=== PATIENT | female | born 1960 | race Caucasian/White ===

== ENCOUNTER → 2018-09-12 11:01 | Outpatient (CLI) | payer BC, SELFPAY ==
--- NOTE | 2018-09-12 11:12 | XR_ITS ---
EXAM: XR lumbar spine min 4V HISTORY: ITS.REASON: LT SIDED LOW BACK PAIN ORDERING PHYSICIAN: Ryan Sepulveda MD PATIENT AGE: 57 years COMPARISON: None FINDINGS: There is degenerative disc disease at L4-L5 with 8 mm anterolisthesis of L4. Mild degenerative disc disease is also present at L5-S1. Mild arthritic changes are present at the SI joints on both sides. No acute fracture. Incidental note is made of some faint calcifications in the epigastric region. This could be within the pancreas. Abdomen CT may confirm. IMPRESSION: 1. 8 mm anterolisthesis of L4 on L5 with degenerative disc disease at that level. 2. Mild degenerative disc disease L5-S1 with degenerative changes in the SI joints. 3. Possible pancreatic calcifications which may be better evaluated with CT
--- NOTE | 2018-09-12 11:13 | XR_ITS ---
XR hip LT 2-3V w/pelvis HISTORY: ITS.REASON: LT HIP PAIN ORDERING PHYSICIAN: Ryan Sepulveda MD PATIENT AGE: 57 years COMPARISON: None FINDINGS: Mild to moderate osteoarthritic changes are present involving the left hip. No fracture or dislocation. No lytic or blastic change. IMPRESSION: Mild to moderate osteoarthritic change of the left hip
== END ==
PROVIDERS: PCP Family Medicine; Visit Provider Family Medicine
DX: M54.42 Lumbago with sciatica, left side (principal); M25.552 Pain in left hip
CPT/HCPCS: 72110; 73502

== ENCOUNTER → 2019-03-19 08:30 | Outpatient (CLI) | payer BC, SELFPAY ==
--- NOTE | 2019-03-19 08:32 | MR_ITS ---
PROCEDURE: MR LUMBAR SPINE WO CON CLINICAL INDICATION: LUMBAR DDD Low back pain, left buttock and leg pain COMPARISON: [id number] XR lumbar spine min 4V from 09/12/2018 TECHNIQUE: Standard multiplanar multiecho sequences are performed without contrast. 3-D MIP and myelographic images are also rendered and reviewed FINDINGS: The spinal cord ends at the L1 level. T11-T12, T12-L1, L1-L2 have an unremarkable appearance. L2-L3: Minimal bulging disc with facet ligamentum hypertrophy. There is very minimal left paracentral disc protrusion. There is moderate bilateral lateral recess and foraminal narrowing due to the bulging disc and facet and ligamentum hypertrophy. This is slightly greater on the left. L3-L4: Mild facet ligamentum hypertrophy with minimal bulging disc with resulting mild bilateral lateral recess and foraminal narrowing. L4-5: Degenerative disc disease. There is 7 mm anterolisthesis of L4 on L5 with bulging disc and facet and ligamentum hypertrophy. There is canal stenosis both AP and transverse with severe bilateral lateral recess narrowing and moderate bilateral foraminal narrowing L5-S1: Unremarkable No extruded herniated disc is evident. IMPRESSION: 1. L2-L3: Minimal bulging disc with facet ligamentum hypertrophy. There is very minimal left paracentral disc protrusion. There is moderate bilateral lateral recess and foraminal narrowing due to the bulging disc and facet and ligamentum hypertrophy. This is slightly greater on the left. 2. L3-L4: Mild facet ligamentum hypertrophy with minimal bulging disc with resulting mild bilateral lateral recess and foraminal narrowing. 3. L4-5: Degenerative disc disease. There is 7 mm anterolisthesis of L4 on L5 with bulging disc and facet and ligamentum hypertrophy. There is canal stenosis both AP and transverse with severe bilateral lateral recess narrowing and moderate bilateral foraminal narrowing 4. No extruded herniated disc evident. The Dictated by: Alberto Rehman MD 03/20/2019 09:39 Electronically signed by Alberto Rehman MD in [facility] 03/20/2019 09:39
== END ==
PROVIDERS: PCP Family Medicine; Visit Provider Physician Assistant
DX: M51.36 Other intervertebral disc degeneration, lumbar region (principal)
CPT/HCPCS: 72148; 76376

== ENCOUNTER 2020-02-21 09:00 | Outpatient (RCR) | payer BC, SELFPAY | END 2020-02-21 09:05 | disposition home or self-care (01) | LOC: PT 09:00 | PROVIDERS: PCP Family Medicine; Visit Provider Orthopaedic Surgery Adult Reconstructive Orthopaedic Surgery | DX: M25.552 Pain in left hip (principal); Z96.642 Presence of left artificial hip joint | CPT/HCPCS: 97110; 97112; 97116; 97163 ==

== ENCOUNTER → 2020-06-27 11:37 | Outpatient (CLI) | payer BC, SELFPAY ==
--- NOTE | 2020-06-27 11:46 | XR_ITS ---
PROCEDURE: XR HIP RT 2-3V W/PELVIS CLINICAL INDICATION: Pain in right hip COMPARISON: No exams were available for comparison FINDINGS: Total left hip arthroplasty is noted. Degenerative changes of the right hip joint with subchondral sclerosis and cystic changes. Minor osteophyte formation. No acute fractures or dislocations. Bone density is normal. No significant soft tissue abnormality. IMPRESSION: Degenerative changes of the right hip joint. Dictated by: Shraddha Holm 06/27/2020 12:26 Shraddha Holm in [facility] 06/27/2020 12:26
== END ==
PROVIDERS: PCP Family Medicine; Visit Provider Family Medicine
DX: M25.551 Pain in right hip (principal)
CPT/HCPCS: 73502

== ENCOUNTER 2020-07-20 11:13 | Emergency (ER) | payer BC, SELFPAY ==
[2020-07-20] VITALS (7 sets, daily range): BP systolic 121–162; BP diastolic 71–94; PULSE 55–70; RESP 14–23; TEMP 36.5–36.7; O2SAT 96–100; BMI 37.4
--- NOTE | 2020-07-20 11:20 | ECG_ITS ---
APPROVED REPORT Exam: Resting ECG HR:66 bpm ECG Measurements Heart Rate 66 AXES MO 156 P 35 QRSd 136 QRS 15 QT 432 T 3 QTc 452 Conclusion Normal sinus rhythm Right bundle branch block Abnormal ECG Electronically signed by : Raghu Griffin, 07/22/2020 22:05:56
--- NOTE | 2020-07-20 11:24 | HMH.EDGENADL ---
ED Disposition Clinical Impression: Vertigo, Paresthesia Headache Qualifiers: Headache type: unspecified Headache chronicity pattern: acute headache Intractability: not intractable Qualified Code(s): R51.9 - Headache, unspecified Hypertension Qualifiers: Hypertension type: essential hypertension Qualified Code(s): I10 - Essential (primary) hypertension Disposition: Home, Self-Care Condition on Discharge: Good Instructions: DI for Vertigo, DI for High Blood Pressure Additional Instructions: Antivert and Phenergan as prescribed. Call your primary care provider tomorrow to arrange follow-up this week. Return to the emergency department if symptoms worsen. Prescriptions: Promethazine HCl [Phenergan 25mg tab] 25 mg PO Q6HP PRN #10 tab PRN Reason: Nausea And Vomiting Transmission Status: Pending to [id number] Meclizine HCl [Antivert 25mg tablet] 25 mg PO TIDP PRN #15 tab PRN Reason: Vertigo Transmission Status: Pending to [id number] Referrals: Davi Mohr MD [Primary Care Provider] - - Critical Care Critical Care Time: No Attestation: On 07/20/20, the high probability of a clinically significant, sudden or life threatening deterioration of the following system(s) required my full and direct attention, intervention and personal management. The time I documented below is in addition to time spent performing reported procedures but includes the following listed in this critical care notation. Medical Decision Making - Art Inquiry Pt receiving controlled substance: No Vital Signs: 07/20/20 11:14 07/20/20 11:38 07/20/20 11:45 Temperature 98.1 F Temperature Source Oral Pulse Rate 69 63 Pulse Rate [Right] 70 Respiratory Rate 16 17 17 Blood Pressure Blood Pressure [Right Arm] 162/94 H Blood Pressure Mean Blood Pressure Mean [Right Arm] 116 Blood Pressure Source [Right Arm] Automatic Cuff Blood Pressure Position [Right Arm] Sitting 02 Sat by Pulse Oximetry 99 97 96 Oxygen Delivery Method Room Air 07/20/20 12:01 07/20/20 12:07 07/20/20 12:15 Temperature Temperature Source Pulse Rate 63 60 Pulse Rate [Right] Respiratory Rate 23 14 16 Blood Pressure 127/71 Blood Pressure [Right Arm] Blood Pressure Mean 89 Blood Pressure Mean [Right Arm] Blood Pressure Source [Right Arm] Blood Pressure Position [Right Arm] 02 Sat by Pulse Oximetry 97 96 Oxygen Delivery Method - Lab Data Lab Results 07/20/20 11:25: WBC 9.6, RBC 4.58, Hgb 13.9, Hct 42.5, MCV 92.8, MCH 30.4, MCHC 32.8, RDW 13.4, Plt Count 275, MPV 7.6, Neut % (Auto) 71.5, Lymph % (Auto) 21.3, Hood % (Auto) 5.3, Eos % (Auto) 1.3, Baso % (Auto) 0.6, Neut # (Auto) 6.8, Lymph # (Auto) 2.0, Hood # (Auto) 0.5, Eos # (Auto) 0.1, Baso # (Auto) 0.1 07/20/20 11:25: Sodium 135 L, Potassium 3.9, Chloride 101, Carbon Dioxide 27, Anion Gap 10.9, BUN 27 H, Creatinine 0.70, Estimated Creat Clear 92, Estimated GFR 85, Est GFR ( Amer) 103, Glucose 133 H, Calcium 9.5, Troponin I < 0.01 07/20/20 11:33: POC Glucose 121 H Result diagrams: 07/20/20 11:25 07/20/20 11:25 Orders (Tests/Meds): ED MEDICATIONS Discontinued Medications Generic Name Dose Route Start Last Admin Trade Name Sarthakq PRN Reason Stop Dose Admin Meclizine HCl 25 mg 07/20/20 11:40 07/20/20 11:45 Meclizine 25mg Tablet PO 07/20/20 11:41 25 mg ONCE ONE Administration Ondansetron HCl 4 mg 07/20/20 11:40 07/20/20 11:45 Ondansetron 4mg/2ml Vial IV 07/20/20 11:41 4 mg ONCE ONE Administration Promethazine HCl 12.5 mg 07/20/20 12:40 07/20/20 12:52 Promethazine Hcl 25mg/Ml 1ml Vial IV 07/20/20 12:41 12.5 mg ONCE ONE Administration Sodium Chloride 25 ml 07/20/20 12:40 07/20/20 12:53 Sodium Chloride 0.9% 25ml Bag IV 07/20/20 12:41 25 ml ONCE ONE Administration ORDERS Category Date Time Status Troponin I Q3H Lab 07/20/20 14:45 Ordered Troponin I
[2020-07-20 11:40] LABS: POC Glucose,Bedside 121 (70-110)
--- NOTE | 2020-07-20 11:40 | CT_ITS ---
PROCEDURE INFORMATION: Exam: CT Head Without Contrast Exam date and time: 07/20/2020 11:40 AM Age: 59 years old Clinical indication: Dizziness and numbness / parasthesia and walking, difficulty; Patient HX: Elevated BP, left arm tingling, and dizziness; Additional info: PT states she had a mini stroke in 2011 and is having the same feeling today. Dizziness / elevated BP since yesterday, left arm tingling starting at 11:00 am today TECHNIQUE: Imaging protocol: Computed tomography of the head without contrast. Radiation optimization: All CT scans at this facility use at least one of these dose optimization techniques: automated exposure control; mA and/or kV adjustment per patient size (includes targeted exams where dose is matched to clinical indication); or iterative reconstruction. COMPARISON: No relevant prior studies available. FINDINGS: Brain: Mild generalized cerebral volume loss and mild patchy white matter hypoattenuation, commonly secondary to chronic small vessel ischemic change. Mild intracranial atherosclerosis. No acute intracranial hemorrhage or evidence of acute ischemic infarction within constraints of limited axial single planar imaging technique. Cerebral ventricles: No ventriculomegaly. Paranasal sinuses: Visualized sinuses are unremarkable. No fluid levels. Mastoid air cells: Visualized mastoid air cells are well aerated. Bones/joints: No acute fracture. Soft tissues: Unremarkable. IMPRESSION: 1. No acute intracranial abnormality. Note that early ischemic change can be occult on CT. ASPECTS score 10. 2. Note that the technologist reports that this clinical site is unable to provide multiplanar reconstructions for head CTs, which reduces sensitivity in detecting small bleeds, small infarctions, and nondisplaced calvarial fractures.
[2020-07-20 12:18] LABS: Basophils # 0.1 K/mm3 (0-0.2); Basophils % 0.6 % (0.1-2.0); Eosinophils # 0.1 K/mm3 (0.0-0.4); Eosinophils % 1.3 % (0.1-12.0); Hematocrit 42.5 % (37.0-47.0); Hemoglobin 13.9 g/dL (12.2-16.2); Lymphocytes % 21.3 % (10-50); Mean Corpuscular HGB Conc 32.8 g/dL (31.8-35.4); Mean Corpuscular Hemoglobin 30.4 pg (27.0-31.2); Mean Corpuscular Volume 92.8 fl (81-99); Mean Platelet Volume 7.6 fl (7.4-10.4); Monocytes # 0.5 K/mm3 (0.1-1.0); Monocytes % 5.3 % (1.7-9.3); Neutrophils # 6.8 K/mm3 (1.8-7.8); Neutrophils % 71.5 % (37.0-80.0); Platelet Count 275 K/mm3 (142-424); Red Blood Count 4.58 M/mm3 (4.20-5.40); Red Cell Distribution Width 13.4 % (11.5-17.5); White Blood Count 9.6 K/mm3 (4.8-10.8)
[2020-07-20 12:20] LABS: Chloride 101 mmol/L (98-107); Potassium 3.9 mmoL/L (3.5-5.1); Sodium 135 mmol/L (136-145)
[2020-07-20 12:23] LABS: Anion Gap 10.9 mEq/L (5-15); Blood Urea Nitrogen 27 mg/dl (7-17); Calcium 9.5 mg/dl (8.4-10.2); Carbon Dioxide 27 mmol/L (22.0-30.0); Creatinine Clearance Estimated 92 mL/min (50-200); Estimated Glomerular Filt Rate 85 ml/min (>60); GFR (African American) 103 ML/MIN (>60); Glucose 133 mg/dl (74-100)
[2020-07-20 12:37] LABS: Troponin I < 0.01 ng/ml (0.00-0.034)
== END 2020-07-20 14:11 | disposition home or self-care (01) ==
PROVIDERS: Emergency Provider Emergency Medicine; PCP Family Medicine
DX: R42 Dizziness and giddiness (principal); R20.2 Paresthesia of skin; E11.65 Type 2 diabetes mellitus with hyperglycemia; I10 Essential (primary) hypertension; Z79.899 Other long term (current) drug therapy
CPT/HCPCS: 70450; 80048; 82962; 84484; 85025; 93005; 96374; 96375; 99282; J2405

== ENCOUNTER → 2020-07-28 14:54 | Outpatient (CLI) | payer BC, SELFPAY ==
--- NOTE | 2020-07-28 14:58 | CA_ITS ---
APPROVED REPORT Hydrogen Cell Tender: Ginger Casillas RVT Laterality: Bilateral Study Quality: Good Indications: DIZZINESS Risk Factors Hypertension: Hyperlipidemia Doppler Spectral Velocity Analysis ECA (R) 84.10/6.40 cm/s ECA (L) 91.20/7.70 cm/s dICA (R) 71.90/23.10 cm/s dICA (L) 76.40/21.20 cm/s Hiren (R) 83.50/27.00 cm/s Hiren (L) 79.60/24.40 cm/s pICA (R) 63.60/18.00 cm/s pICA (L) 78.30/23.80 cm/s dCCA (R) 63.60/15.00 cm/s dCCA (L) 66.10/14.80 cm/s pCCA (R) 83.10/15.00 cm/s pCCA (L) 102.00/15.40 cm/s Vert (R) 71.90/10.30 cm/s Vert (L) 79.30/15.70 cm/s ICA/CCA 1.31 ICA/CCA 1.20 Findings Study suggests less than 20% stenosis of the bilateral internal cartoid arteries. Antegrade flow seen bilateral vertebral arteries. Conclusion Study suggests less than 20% stenosis of the bilateral internal cartoid arteries. Antegrade flow seen bilateral vertebral arteries. Electronically signed by : Varun Ramsey, 07/28/2020 16:24:32
== END ==
LOC: RT 14:56
PROVIDERS: PCP Family Medicine; Visit Provider Family Medicine
DX: R42 Dizziness and giddiness (principal)
CPT/HCPCS: 93880

== ENCOUNTER → 2022-01-01 08:56 | Outpatient (CLI) | payer BC, SELFPAY ==
--- NOTE | 2022-01-01 | CA_ITS ---
FINAL REPORT CLINICAL HISTORY: HTN,DM FINDINGS: Aorta velocity: 138 cm/sec Right kidney: 10.3 cm. No evidence of hydronephrosis or mass. Right intrarenal RI: 0.64 Right renal artery velocity: 254 cm/sec. Right RAR (Renal artery-Aortic Ratio): 1.85 Left Kidney: 11.1 cm. No evidence of hydronephrosis or mass. Left intrarenal RI: 0.68 Left renal artery velocity: 237 cm/sec. Left RAR (Renal Artery-Aortic Ratio): 1.72 IMPRESSION: Less than 60% bilateral renal artery stenosis. CT angiogram or postcontrast MR angiogram would be more sensitive for evaluation of possible renal artery stenosis. Reviewed, Interpreted and Dictated by Thomas Palomino MD Transcribed by Alonso Atwood Authenticated and [facility]
[2022-01-01 10:28] LABS: Hemoglobin A1C 6.9 % (4.0-6.0)
[2022-01-01 10:33] LABS: Alanine Aminotransferase 24 U/L (12-78); Albumin Level 4.5 g/dl (3.5-5.0); Albumin/Globulin Ratio 1.5 (1.1-1.8); Alkaline Phosphatase 114 U/L (38-126); Anion Gap 16.4 mEq/L (5-15); Aspartate Amino Transferase 27 U/L (14-36); Bilirubin,Total 0.5 mg/dl (0.2-1.3); Blood Urea Nitrogen 32 mg/dl (7-17); Calcium 10.3 mg/dl (8.4-10.2); Carbon Dioxide 29 mmol/L (22.0-30.0); Chloride 98 mmol/L (98-107); Cholesterol 203 mg/dl (140-200); Estimated Glomerular Filt Rate 63 ml/min (>60); GFR (African American) 77 ML/MIN (>60); Glucose 159 mg/dl (74-100); HDL Cholesterol 51 mg/dl (40-60); Potassium 4.4 mmoL/L (3.5-5.1); Sodium 139 mmol/L (136-145); Total Protein,Serum 7.5 g/dl (6.3-8.2); Triglycerides 180 mg/dl (30-150); VLDL Cholesterol 36 mg/dL (0-40)
[2022-01-01 10:44] LABS: Direct LDL Cholesterol 107.91 mg/dL (100-129)
== END ==
PROVIDERS: PCP Family Medicine; Visit Provider Family Medicine
DX: I10 Essential (primary) hypertension (principal); E11.9 Type 2 diabetes mellitus without complications; E78.5 Hyperlipidemia, unspecified; Z79.84 Long term (current) use of oral hypoglycemic drugs
CPT/HCPCS: 36415; 80053; 80061; 83036; 93976

== ENCOUNTER → 2022-01-19 11:41 | Outpatient (CLI) | payer BC, SELFPAY ==
[2022-01-19 12:55] LABS: Basophils # 0.1 K/mm3 (0-0.2); Basophils % 1.5 % (0.1-2.0); Eosinophils # 0.1 K/mm3 (0.0-0.4); Eosinophils % 2.1 % (0.1-12.0); Hematocrit 44.4 % (37.0-47.0); Lymphocytes # 2.1 K/mm3 (0.7-4.5); Lymphocytes % 32.3 % (10-50); Mean Corpuscular HGB Conc 31.6 g/dL (31.8-35.4); Mean Corpuscular Hemoglobin 30.6 pg (27.0-31.2); Mean Corpuscular Volume 96.6 fl (81-99); Mean Platelet Volume 8.1 fl (7.4-10.4); Monocytes # 0.5 K/mm3 (0.1-1.0); Monocytes % 7.4 % (1.7-9.3); Neutrophils # 3.8 K/mm3 (1.8-7.8); Neutrophils % 56.8 % (37.0-80.0); Platelet Count 301 K/mm3 (142-424); Red Blood Count 4.59 M/mm3 (4.20-5.40); Red Cell Distribution Width 12.8 % (11.5-17.5); White Blood Count 6.6 K/mm3 (4.8-10.8)
[2022-01-19 14:52] LABS: Chloride 101 mmol/L (98-107); Sodium 132 mmol/L (136-145)
[2022-01-19 14:53] LABS: Potassium 3.8 mmoL/L (3.5-5.1)
[2022-01-19 14:56] LABS: Anion Gap 7.8 mEq/L (5-15); Blood Urea Nitrogen 21 mg/dl (7-17); Calcium 10.5 mg/dl (8.4-10.2); Carbon Dioxide 27 mmol/L (22.0-30.0); Estimated Glomerular Filt Rate 72 ml/min (>60); GFR (African American) 88 ML/MIN (>60); Glucose 123 mg/dl (74-100)
== END ==
PROVIDERS: PCP Family Medicine; Visit Provider Physician Assistant
DX: R09.89 Other specified symptoms and signs involving the circulatory and respiratory systems (principal); I45.10 Unspecified right bundle-branch block; I10 Essential (primary) hypertension; E11.69 Type 2 diabetes mellitus with other specified complication; R94.31 Abnormal electrocardiogram [ECG] [EKG]; I63.9 Cerebral infarction, unspecified; Z82.49 Family history of ischemic heart disease and other diseases of the circulatory system; Z79.84 Long term (current) use of oral hypoglycemic drugs
CPT/HCPCS: 36415; 80048; 85025

== ENCOUNTER 2022-02-09 08:51 | Day surgery (SDC) | payer BC, SELFPAY ==
[2022-02-09] VITALS (19 sets, daily range): BP systolic 140–221; BP diastolic 49–114; PULSE 50–76; RESP 16; O2SAT 94–100; BMI 39.4
--- NOTE | 2022-02-09 09:23 | IR_ITS ---
APPROVED REPORT Patient Location: Outpatient Assistant Manager: JAMES Coppola RT (R) PROCEDURES Bilateral selective renal angiography INDICATION Abnormal renal duplex, Suspected renovascular hypertension Informed consent was obtained prior to the procedure. COMPLICATIONS None Estimated Blood Loss: Less than 10 mls TECHNIQUE 1% lidocaine used to anesthetize the right femoral groin. The right femoral artery was accessed via the Seldinger technique. A 4 Niuean sheath was placed in the right femoral artery. The JR4 catheter was used to selectively intubate each renal artery. At the end of the diagnostic angiogram the patient was transferred to the postop holding area in stable condition for sheath removal. ANGIOGRAPHIC RESULTS Left renal artery is singular and normal Right renal artery has a dual arterial supply. The major artery supplying 60% of the kidney has a proximal eccentric 10 to 20% stenosis in which a 10 mm gradient is present upon pullback with a JR4 4 Niuean catheter. The 40% supplying the vessel is normal IMPRESSION Nonocclusive mild right renal artery stenosis PLAN 1. Treatment of essential hypertension Electronically signed by : Evgeny Penn MD 02/09/2022 10:24:07
== END 2022-02-09 13:40 | disposition home or self-care (01) ==
LOC: CATHLAB 08:52
PROVIDERS: PCP Family Medicine; Visit Provider Internal Medicine
DX: I70.1 Atherosclerosis of renal artery (principal); R94.31 Abnormal electrocardiogram [ECG] [EKG]; I10 Essential (primary) hypertension; I45.10 Unspecified right bundle-branch block; E11.9 Type 2 diabetes mellitus without complications; Z79.84 Long term (current) use of oral hypoglycemic drugs; Z79.899 Other long term (current) drug therapy; Z82.49 Family history of ischemic heart disease and other diseases of the circulatory system
CPT/HCPCS: 36252; 99152; C1725; C1769; J1644; Q9967

== ENCOUNTER → 2022-03-20 08:54 | Outpatient (CLI) | payer BC, SELFPAY ==
[2022-03-20 09:02] LABS: Microscopic, Urine URINE MICROSCOPIC (MICROSCOPIC)
[2022-03-20 09:22] LABS: Basophils # 0.1 K/mm3 (0-0.2); Basophils % 2.5 % (0.1-2.0); Eosinophils # 0.2 K/mm3 (0.0-0.4); Eosinophils % 3.6 % (0.1-12.0); Hematocrit 43.1 % (37.0-47.0); Hemoglobin 13.8 g/dL (12.2-16.2); Lymphocytes % 36.5 % (10-50); Mean Corpuscular HGB Conc 32.1 g/dL (31.8-35.4); Mean Corpuscular Volume 96.6 fl (81-99); Monocytes # 0.3 K/mm3 (0.1-1.0); Neutrophils # 2.9 K/mm3 (1.8-7.8); Neutrophils % 51.5 % (37.0-80.0); Platelet Count 339 K/mm3 (142-424); Red Blood Count 4.46 M/mm3 (4.20-5.40); White Blood Count 5.6 K/mm3 (4.8-10.8)
[2022-03-20 09:31] LABS: Appearance,Urine CLEAR (Clear); Bilirubin,Urine Negative (Negative); Blood, Urine Negative (Negative); Color,Urine YELLOW (Yellow); Glucose,Urine (UA) Negative (Negative); Ketones,Urine Negative (Negative); Leukocyte Esterase,Urine Negative (Negative); Nitrate,Urine Negative (Negative); Protein,Urine Negative (Negative); Specific Gravity, Urine 1.015 (1.005-1.030); Urobilinogen,Urine 0.2 EU/dl (0.2)
[2022-03-20 09:56] LABS: Albumin Level 4.3 g/dl (3.5-5.0); Anion Gap 8.9 mEq/L (5-15); Blood Urea Nitrogen 18 mg/dl (7-17); Calcium 9.3 mg/dl (8.4-10.2); Carbon Dioxide 30 mmol/L (22.0-30.0); Chloride 103 mmol/L (98-107); Estimated Glomerular Filt Rate 85 ml/min (>60); GFR (African American) 102 ML/MIN (>60); Glucose 147 mg/dl (74-100); Phosphorous 3.4 mg/dl (2.5-4.5); Potassium 3.9 mmoL/L (3.5-5.1); Sodium 138 mmol/L (136-145)
[2022-03-20 10:09] LABS: Intact Parathyroid Hormone 33.7 pg/mL (7.5-53.5)
[2022-03-20 10:11] LABS: Bacteria,Urine Trace /lpf
[2022-03-20 10:13] LABS: 25-OH Vitamin D, Total 59.2 ng/mL (30-100)
[2022-03-20 10:23] LABS: Creatinine,Urine Random 77 mg/dL (Not Estab.)
[2022-03-27 00:05] LABS: Renin Activity, Plasma 0.877 ng/mL/hr (0.167-5.380)
== END ==
PROVIDERS: PCP Family Medicine; Visit Provider Internal Medicine Nephrology
DX: I10 Essential (primary) hypertension (principal); E55.9 Vitamin D deficiency, unspecified
CPT/HCPCS: 36415; 80069; 81001; 82088; 82306; 82570; 83970; 84155; 84244; 85025

== ENCOUNTER → 2022-03-29 14:49 | Outpatient (POV) | payer BC, SELFPAY | PROVIDERS: Visit Provider Internal Medicine Nephrology | DX: Z00.00 Encounter for general adult medical examination without abnormal findings (principal) ==

== ENCOUNTER → 2022-05-20 16:14 | Outpatient (POV) | payer BC, SELFPAY | PROVIDERS: Visit Provider Internal Medicine Nephrology | DX: Z00.00 Encounter for general adult medical examination without abnormal findings (principal) ==

== ENCOUNTER → 2022-05-20 16:48 | Outpatient (CLI) | payer BC, SELFPAY | PROVIDERS: PCP Family Medicine; Visit Provider Internal Medicine Nephrology | DX: I10 Essential (primary) hypertension (principal) ==

== ENCOUNTER → 2022-05-21 13:26 | Outpatient (CLI) | payer BC, SELFPAY ==
[2022-05-21 15:58] LABS: Anion Gap 9.3 mEq/L (5-15); Blood Urea Nitrogen 23 mg/dl (7-17); Calcium 9.2 mg/dl (8.4-10.2); Carbon Dioxide 27 mmol/L (22.0-30.0); Chloride 97 mmol/L (98-107); Estimated Glomerular Filt Rate 85 ml/min (>60); GFR (African American) 102 ML/MIN (>60); Glucose 117 mg/dl (74-100); Potassium 4.3 mmoL/L (3.5-5.1); Sodium 129 mmol/L (136-145)
== END ==
PROVIDERS: PCP Family Medicine; Visit Provider Internal Medicine Nephrology
DX: I10 Essential (primary) hypertension (principal)
CPT/HCPCS: 36415; 80048

== ENCOUNTER 2024-02-10 10:45 | Emergency (ER) | payer MEDICARE, SELFPAY ==
[2024-02-10 12:25] VITALS: BP 140/74; PULSE 71; RESP 18; TEMP 36.8; O2SAT 99; BMI 40.9
--- NOTE | 2024-02-10 12:34 | EXP.UTC ---
Discharge Plan Disposition Patient Disposition: Home, Self-Care Condition: Good Prescriptions Prescriptions: New cephalexin 500 mg capsule 500 mg PO QID 5 Days Qty: 20 0RF No Action hydrochlorothiazide 25 mg tablet 25 mg PO DAILY metformin 850 MG tablet 850 mg PO DAILY carvedilol 25 mg tablet 25 mg PO BID Patient Comments: TAKE 1 TABLET BY MOUTH TWICE DAILY lisinopril 40 mg tablet 40 mg PO DAILY Patient Comments: TAKE 1 TABLET BY MOUTH ONCE DAILY Referrals Follow up/Referrals: Davi Mohr MD [Primary Care Provider] - See instructions Activity Restrictions/Add. Instructions Additional Instructions/Restrictions: *Start antibiotic(s) immediately and be sure to take as ordered for the FULL length of time although you may be feeling better or start to see improvement in the next 24-48 hours *Monitor closely. Outlined redness so that you can monitor easier. Follow up immediately for new or worsening symptoms including but not limited to redness, swelling, streaking from site fever or chills. *Warm compress 15 minutes 3-4 times day *Never squeeze or pop these on your own. Seek immediate medical attention next time this occurs *Monitor Temp. Tylenol every 4 hours as needed and ibuprofen every 6 hours as needed (as long as your primary care doctor has told you that it is ok to take both. For fever, aches, pain. ER if no less that 101 despite Tylenol and ibuprofen ?Follow up with your family doctor/primary care physician in the next 48-72 hours if no improvement Clinical Impressions Clinical Impression: Cellulitis Instructions Patient Instructions: Cellulitis, Cephalexin Print Language Print Language: Armenian Discharge ED Provider: Maria E Lemus [facility] [place] General Stated complaint: swollen, red, warm on back of right leg Time Seen by Provider: 02/10/24 12:34 History of Present Illness Provider Complaint: Patient states that she woke up this morning with a red warm area on the back of her right leg states that she thinks she is starting with cellulitis States that she wanted to come in and get checked before it got too bad Related Data Home Medications ?Medication ?Instructions ?Recorded ?Confirmed metformin 850 mg tablet 850 mg PO DAILY Diabetes 07/20/20 02/10/24 hydrochlorothiazide 25 mg tablet 25 mg PO DAILY . 01/19/22 02/10/24 carvedilol 25 mg tablet 25 mg PO BID 02/10/24 02/10/24 lisinopril 40 mg tablet 40 mg PO DAILY 02/10/24 02/10/24 Previous Rx's ?Medication ?Instructions ?Recorded cephalexin 500 mg capsule 500 mg PO QID 5 days #20 caps 02/10/24 Allergies Allergy/AdvReac Type Severity Reaction Status Date / Time naproxen (NAPROXEN) Allergy Mild Verified 02/22/22 14:26 [facility] Disclaimer: The information contained in this section may have been updated after the patient was seen, as this information can be updated by other users. Medical History (Updated 02/10/24 @ 12:41 by Maria E Lemus APRN) History of anemia Urinary tract infection Diabetes mellitus, type 2 Hypertension Social History Smoking Status: Never smoker alcohol intake: never current occupational status: employed Travel in the last 8 weeks: None Have you lived/traveled outside [place] in past 30 days?: No Contact w/someone who lives/traveled outside US past 30 days?: No Exposure to someone with infectious disease in past 14 days?: No Do you have a fever (greater than 100.4 F or 38 C)?: No Have you tested positive for COVID-19: No Exposed to someone with COVID-19 in past 14 days?: No Do you have a sore throat?: No Do you have a cough?: No Do you have any weakness?: No Do you have any diarrhea?: No Are you experiencing any unusual bleeding?: No Do you have any muscle aches/pain?: No Do you have any abdominal pain?: No Are you experiencing loss of taste or smell?: No ROS Obtained: Yes All systems reviewed & no additional complaints except as documented and Yes Systems reviewed as appropriate & no additional complaints except as documented Constitutional Constitutional: Reports system reviewed and no additional complaints, except as documented, Reports as per HPI, Denies body ache, Denies chills, Denies fever(s), Denies frequent falls and Denies headache(s) ENT Ears, Nose, Mouth, and Throat: Reports system reviewed and no additional complaints, except as documented, Reports as per HPI and Denies headache(s) Cardiovascular Cardiovascular: Reports system reviewed and no additional complaints, except as documented and Reports as per HPI Respiratory Respiratory: Reports system reviewed and no additional complaints, except as documented and Reports as per HPI Gastrointestinal Gastrointestingal: Reports system reviewed and no additional complaints, except as documented and as per HPI Musculoskeletal Musculoskeletal: Reports system reviewed and no additional complaints, except as documented and Reports as per HPI Integumentary/Breasts Skin/Breast: Reports system reviewed and no additional complaints, except as documented and Reports as per HPI Comments: red warm area on the back of right leg Neurologic Neurologic: Denies frequent falls and Denies headache(s) Physical Exam General General appearance: alert and in no apparent distress Respiratory Respiratory exam: Present normal lung sounds bilaterally; Absent respiratory distress or wheezes Cardiovascular Cardiovascular exam: Present regular rate, normal rhythm and normal heart sounds Expanded Lower Extremity Exam Right: Lower leg exam: Present erythema (small red, warm area noted appears like cellulitis,+ pedal pulse noted); Absent swelling or Homans' sign Neurovascular/Tendon exam: Present normal capillary refill Gait: observed and normal Neurological Exam Neurological exam: Present alert, oriented X3 and normal gait Skin Skin exam: Present other (red warm area noted on calf of leg appears like cellulitis) Medical Decision Making Medical Records Screening: Per USPSTF and CDC recommendations, given the prevalence of disease in our region, it is our hospital?s policy to screen for HIV and viral Hepatitis for all patients aged 18 and over and those with ongoing risk factors. Art Inquiry Pt receiving controlled substance: No Art was queried for this patient: No Medical Decision Narrative: medication discussed with pharmacy
[2024-02-10 12:48] VITALS: BP 140/74; PULSE 71; RESP 18; TEMP 36.8; O2SAT 99
== END 2024-02-10 12:49 | disposition home or self-care (01) ==
PROVIDERS: Emergency Provider Nurse Practitioner; PCP Family Medicine
DX: L03.115 Cellulitis of right lower limb (principal)
CPT/HCPCS: 99213; G0381